=== PATIENT | female | born 1955 | race Caucasian/White ===

== ENCOUNTER 2023-07-31 10:02 | Outpatient (RCR) | payer MEDICARE, OTHER, SELFPAY | END 2023-07-31 23:59 | disposition home or self-care (01) | LOC: RPT 10:02 | PROVIDERS: ATTENDING PHYSICIAN Internal Medicine | DX: M50.00 Cervical disc disorder with myelopathy, unspecified cervical region (principal); R26.9 Unspecified abnormalities of gait and mobility; Z73.6 Limitation of activities due to disability | CPT/HCPCS: 97110; 97112; 97163 ==

== ENCOUNTER 2023-09-01 14:07 | Outpatient (RCR) | payer MEDICARE, OTHER, SELFPAY | END 2023-09-01 23:59 | disposition home or self-care (01) | LOC: RPT 14:07 | PROVIDERS: ATTENDING PHYSICIAN Internal Medicine | DX: M50.01 Cervical disc disorder with myelopathy, high cervical region (principal); M50.00 Cervical disc disorder with myelopathy, unspecified cervical region (principal); R26.9 Unspecified abnormalities of gait and mobility | CPT/HCPCS: 97110; 97112; 97530 ==

== ENCOUNTER 2023-09-25 08:33 | Outpatient (RCR) | payer MEDICARE, OTHER, SELFPAY | END 2023-09-25 23:59 | disposition home or self-care (01) | LOC: RPT 08:33 | PROVIDERS: ATTENDING PHYSICIAN Internal Medicine | DX: M50.00 Cervical disc disorder with myelopathy, unspecified cervical region (principal); R26.9 Unspecified abnormalities of gait and mobility; Z73.6 Limitation of activities due to disability | CPT/HCPCS: 97110; 97112; 97116; 97530 ==

== ENCOUNTER 2023-10-13 13:08 | Outpatient (RCR) | payer MEDICARE, OTHER, SELFPAY | END 2023-10-13 23:59 | disposition home or self-care (01) | LOC: RPT 13:08 | PROVIDERS: ATTENDING PHYSICIAN Internal Medicine | DX: M50.00 Cervical disc disorder with myelopathy, unspecified cervical region (principal); R26.9 Unspecified abnormalities of gait and mobility; Z73.6 Limitation of activities due to disability | CPT/HCPCS: 97110; 97112; 97530 ==

== ENCOUNTER 2024-02-10 12:11 | Emergency (ER) | payer MEDICARE, OTHER, SELFPAY ==
[2024-02-10 12:15] VITALS: BP 116/54
--- NOTE | 2024-02-10 13:05 | ED.GENMED ---
History of Present Illness
General
Chief Complaint: Dizziness
Time Seen by Provider: 02/10/24 13:05
History of Present Illness
History of Present Illness:
HPI: Patient presents after a fall. This occurred 2 days ago. She has chronic dizziness/near syncope. The dizziness is not necessarily a new thing. She has been to neurology in the past and describes history of syringomyelia as well as
choreoathetoid movements. She is not on any treatment for this. Her main concern is ongoing pain to the low back/'tailbone' region.
EXAM:
GENERAL: Well appearing in no distress
HEENT: Moist oral mucosa
CARDIOVASCULAR: No murmurs, normal heart rate, regular rhythm, No chest wall tenderness
PULMONARY: No respiratory distress, breath sounds are clear and equal
ABDOMEN: Soft with no peritoneal signs, no tenderness
BACK: There is no significant tenderness to palpation
NEUROLOGIC: Excellent strength all extremities, no coordination deficits, intermittent choreoathetoid movements noted primarily to the lower extremities
PSYCHIATRIC: Appropriate mental status, normal insight and judgement
EXTREMITIES: Nontender, no edema, moves all extremities equally
SKIN: No rash, no lesions
TIME OF INITIAL ENCOUNTER: 2 PM
NUMBER AND COMPLEXITY OF PROBLEMS ADDRESSED AT THE ENCOUNTER
� Chronic conditions affecting care: Syringomyelia, chronic vertigo, melanoma
� Acute Exacerbation and/or Progression of Chronic Illness: This is an acute problem
� Differential Diagnosis includes: Lumbar spine fracture, pelvic bone fracture, contusion, hematoma
AMOUNT AND/OR COMPLEXITY OF DATA TO BE REVIEWED AND ANALYZED
� I performed an independent evaluation of and my interpretation is:
EKG:
CT: I personally viewed CT imaging. I agree with radiologist interpretation that there is a superior endplate fracture at L1.
X-rays:
Laboratory Studies:
Other:
� Review of other/old records: I reviewed records�the patient has been seeing physical therapy related to cervical myelopathy
� Clinical information was obtained by an independent historian: I spoke to the at bedside
� Prescriptions/Medications Considered but not given:
� Further testing considered but not performed:
RISK OF COMPLICATIONS AND/OR MORBIDITY OR MORTALITY OF PATIENT MANAGEMENT
� Social determinants of health affecting care: Lives at home
� Discussion with other providers:
� Escalation of care including admission/observation vs risk of discharge considered: The patient is found to have a superior endplate fracture at L1. She is neurologically intact. Will give narcotic analgesia. She states this
has helped her when she took an (2019) narcotic recently.
Past History
Past History
ED Past Medical History: Other (Movement disorder, multiple DVTs)
ED Past Surgical History:
Social History
Tobacco: Non-smoker
Alcohol: None
Drug: None
Phy Exam
Physical Exam
Physical Exam:
See HPI
Course
Orders/Labs/Results
Orders:
Orders
02/10/24 12:20
EKG [Electrocardiogram (*1)] Urgent
Reason for Study: Vertigo / Dizzy
EKG- Treatment ONCE
02/10/24 13:28
CT Lumbar Spine W/o Iv Contras Urgent
Comment:
Reason For Exam: fall pain
CT Pelvis W/o Iv Contrast Urgent
Comment:
Reason For Exam: fall pain
02/10/24 15:19
Oxycodone/Acetaminophen [Percocet 5/325] 1 tablet PO NOW STA
Vital Signs
Initial and Last Documented VS:
Initial Vital Signs
Temp Pulse Resp BP Pulse Ox
97.6 F 72 18 116/54 94
02/10/24 12:15 02/10/24 12:15 02/10/24 12:15 02/10/24 12:15 02/10/24 12:15
Last Documented Vital Signs
Temp Pulse Resp BP Pulse Ox
97.6 F 77 18 114/60 96
02/10/24 12:15 02/10/24 14:25 02/10/24 14:25 02/10/24 14:25 02/10/24 14:25
*Critical Care Note
Total Time (30-74mins, 75-104mins- exclusive of procedures): Not Applicable
ED Attending Note
-
Portions of this chart may have been created with voice recognition software.� Occasional wrong word or��sound alike� substitutions may have occurred due to the inherent limitations of voice recognition software.
Discharge Plan
Departure
Patient Disposition: Home (Routine Discharge)
Date of Disposition: 02/10/24
Time of Disposition: 15:20
Patient with high blood pressure during this ER visit?: Yes
Discharge Problem:
Closed lumbar vertebral fracture
Instructions: Vertebral Compression Fracture (DC)
Prescriptions:
New
oxycodone-acetaminophen [Percocet] 5-325 mg tablet
1 tab PO Q6HPRN PRN (Reason: pain) Qty: 14 0RF
No Action
amoxicillin-pot clavulanate 875-125 mg tablet
1 tab PO Q12H Qty: 14 0RF
Referrals:
Clemente Durham, [Active] - Follow up in 2-3 days
Tracy Andersen MD [Family Provider] -
Activity Restrictions/Additional Instructions:
At the top most lumbar vertebrae, there is a 'superior endplate fracture'. Imaging of the pelvis did not show any signs of blood collection or fracture of the pelvis. Take the narcotic pain medication I recommend that you take something like
MiraLAX to prevent constipation. I have also given the contact information for a local customer advisor specialist, Dr. Durham. Return here if worse.
Interventions
Interventions:
*Neglect/Abuse Screening Last Done: 02/10/24 14:24
ED- Fall Risk Assessment Last Done: 02/10/24 14:34
*ED COVID-19 Vaccine History Last Done: 02/10/24 14:24
ED- Neurological Assessment Last Done: 02/10/24 14:34
ED- Cardiac Assessment Last Done: 02/10/24 14:34
ED Swallowing Screen Last Done: 02/10/24 14:34
Discharge Date and Time
Print Language: LITHUANIAN
[2024-02-10 14:25] VITALS: BP 114/60; BMI 26.8
[2024-02-10] MEDS: PERCOCET 5/325 1 TABLET PO (15:25)
[2024-02-10 15:26] VITALS: BP 112/68
== END 2024-02-10 15:41 | disposition home or self-care (01) ==
LOC: EMR 12:11
PROVIDERS: EMERGENCY PHYSICIAN Emergency Medicine; FAMILY PHYSICIAN Internal Medicine
DX: S32.019A Unspecified fracture of first lumbar vertebra, initial encounter for closed fracture (principal); R42 Dizziness and giddiness; W19.XXXA Unspecified fall, initial encounter; R03.0 Elevated blood-pressure reading, without diagnosis of hypertension; Z86.718 Personal history of other venous thrombosis and embolism; G25.89 Other specified extrapyramidal and movement disorders
CPT/HCPCS: 99284; 72131; 72192; 93005

== ENCOUNTER 2024-05-03 09:19 | Outpatient (RCR) | payer MEDICARE, OTHER, SELFPAY | END 2024-05-03 23:59 | disposition home or self-care (01) | LOC: RPT 09:19 | PROVIDERS: ATTENDING PHYSICIAN Physician Assistant Surgical; FAMILY PHYSICIAN Internal Medicine | DX: S32.010D Wedge compression fracture of first lumbar vertebra, subsequent encounter for fracture with routine healing (principal); M62.81 Muscle weakness (generalized); R26.89 Other abnormalities of gait and mobility; Z73.6 Limitation of activities due to disability | CPT/HCPCS: 97110; 97116; 97162 ==

== ENCOUNTER 2024-05-31 09:07 | Outpatient (RCR) | payer MEDICARE, OTHER, SELFPAY | END 2024-05-31 10:12 | disposition home or self-care (01) | LOC: RPT 09:07 | PROVIDERS: ATTENDING PHYSICIAN Physician Assistant Surgical; FAMILY PHYSICIAN Internal Medicine | DX: S32.010D Wedge compression fracture of first lumbar vertebra, subsequent encounter for fracture with routine healing (principal); M62.81 Muscle weakness (generalized); Z73.6 Limitation of activities due to disability | CPT/HCPCS: 97110 ==

== ENCOUNTER 2024-06-18 14:43 | Inpatient (IN) | payer MEDICARE, OTHER, SELFPAY ==
[2024-06-17] VITALS (9 sets, daily range): BP systolic 97–160; BP diastolic 58–97; BMI 22.9; BMI 21.9; BMI 21.6
--- NOTE | 2024-06-17 02:43 | ED.GENMED ---
History of Present Illness
General
Chief Complaint: Chest Problem
Source: patient, spouse and previous radiology exam (CT of the chest abdomen pelvis as well as CTA of the chest performed at [place] yesterday.)
Exam Limitations: none
Time Seen by Provider: 06/17/24 01:53
Nursing documentation reviewed up to this point in time: agreed with
History of Present Illness
History of Present Illness:
This is a 69-year-old woman who resides at home with her . She has history of chorea, chronic ambulatory dysfunction, history of metastatic melanoma initially diagnosed right shoulder 2017. Underwent excision of melanoma as well as 12-month
course of Aptiva and had been cancer free until discovering of multiple lung mets August 2023. Since then she has been maintained on Opdualag monthly injections last of which was May 2023.
She undergoes surveillance CAT scans every 3 months last of which was yesterday at [place]. Initial CT chest abdomen pelvis yesterday showing several bilateral pulmonary nodules, bony rib metastatic disease but also note of concern for right
lower lobe PE. Patient was notified and she returned yesterday evening and underwent CTA of the chest which demonstrates a nonocclusive subsegmental right lower lobe PE and concern for mild right heart strain with RV to LV ratio of 1.0.
Patient was notified of these findings and recommended to come to the ED for further evaluation.
She does note an episode of acute right-sided chest pain while shopping with her that occurred 1 month ago. Since then she has had no recurrent chest pain, she denies cough nor shortness of breath nor chest pain. She does admit to perhaps
mild dyspnea on exertion and overall has very limited exertion due to chronic balance issues, chronic choria.
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 She reports no missed doses.
She denies leg pain or swelling.
She has not had a fever nor chills.
Past History
Past History
ED Past Medical History: Cancer (Melanoma metastatic to lungs and ribs), Other (Chronic chorea; history of DVTs-chronically maintained on Xarelto; L1 compression fracture) and Other (Movement disorder, multiple DVTs)
ED Past Surgical History:
Social History
Tobacco: Non-smoker
Alcohol: None
Drug: None
Personal:
Living: with family
Employment: Retired
Family History
Family History: Other (Noncontributory)
Phy Exam
Physical Exam
Physical Exam:
GENERAL: 69-year-old woman appears her stated age, awake and alert, pleasant, quite chatty and overall appears in no acute distress. is accompanying.
EYE: anicteric
NECK: Supple, nontender, no meningismus, no significant adenopathy. No JVD.
ENT: posterior pharynx is clear, oral mucosa is moist. Lips are dry. No rhinorrhea.
CARDIAC: Regular rate and rhythm. no murmur.
LUNGS: Clear breath sounds bilaterally, no acute respiratory distress, no wheezes/rales/rhonchi
ABDOMEN: Soft, nondistended, without focal tenderness, normoactive BS.
NEUROLOGICAL: Alert and oriented x3, no focal neuro deficits. Mild persistent choreiform movements of extremities
SKIN: Warm and dry, normal color, skin intact. No rash.
MUSCULOSKELETAL: No C/C/E. peripheral pulses are full and equal b/l. No palpable tenderness.
PSYCH: Normal and appropriate interaction.
Course
Orders/Labs/Results
Orders:
Orders
06/17/24 01:55
Electrocardiogram (*1) Urgent
Reason for Study: Other
Other Reason for Exam: incidental RLL PE on CT chest
EKG- Treatment ONCE
06/17/24 02:49
Complete Blood Count/With Diff Urgent
Comprehensive Metabolic Panel Urgent
NT-proBNP Urgent
PTT Urgent
Troponin I Urgent
Abnormal Lab Results
06/17/24
02:49
RBC 3.67 L 10^6/uL
(4.20-5.40)
Hgb 11.6 L g/dL
(12.0-16.0)
Hct 33.9 L %
(37.0-47.0)
MCH 31.6 H pg
(27.0-31.0)
Monocytes % 9.8 H %
(1.7-9.3)
06/17/24 02:49
Vital Signs
Initial and Last Documented VS:
Initial Vital Signs
Temp Pulse Resp BP Pulse Ox
98.6 F 85 20 120/63 100
06/17/24 01:39 06/17/24 01:39 06/17/24 01:39 06/17/24 01:39 06/17/24 01:39
Last Documented Vital Signs
Temp Pulse Resp BP Pulse Ox
98.1 F 93 27 132/73 100
06/17/24 02:01 06/17/24 02:48 06/17/24 02:48 06/17/24 02:48 06/17/24 02:48
MDM/Problems Addressed
Differential Diagnosis Includes:
Patient presents with outpatient CT chest abdomen pelvis showing nonocclusive subsegmental right lower lobe PE with concern for right heart strain.
Overall patient appears comfortable, has been fairly asymptomatic and remains hemodynamically stable.
Significant concern however that patient has failed anticoagulation with Xarelto.
As she overall is stable, fairly asymptomatic, at this point no indication for urgent thrombectomy especially as PE found to be nonocclusive.
She will however require Lovenox and acute hospitalization for further evaluation and monitoring.
Chronic conditions affecting care: Cancer and Other (Prior history of DVTs-chronically maintained on Xarelto)
*Pulse Oximetry
Patient hypoxic: no
*EKG
Interpreted by ED Provider?: Yes
Interpretation: normal
Comparison EKG: no changes (Unchanged from previous February 2024)
Rate: normal
Rhythm: sinus
[place]: normal axis
Interval: normal interval
QRS Pattern: normal QRS
Ischemia: no ischemia
*Technical Services Coordinator Interpretation
Rate: normal
Interpretation: normal
Rhythm: sinus
*Critical Care Note
Total Time (30-74mins, 75-104mins- exclusive of procedures): Not Applicable
ED Attending Note
-
Portions of this chart may have been created with voice recognition software.� Occasional wrong word or��sound alike� substitutions may have occurred due to the inherent limitations of voice recognition software.
Discharge Plan
Departure
Patient Disposition: Admit
Date of Disposition: 06/17/24
Time of Disposition: 03:07
Admit to: Telemetry
Admit to doctor: Manjula
Presentation/result/management discussed w/ accepting MD/DO: Hospitalist
Condition: Fair
Discharge Problem:
Acute pulmonary embolism
Prescriptions:
No Action
amoxicillin-pot clavulanate 875-125 mg tablet
1 tab PO Q12H Qty: 14 0RF
oxycodone-acetaminophen [Percocet] 5-325 mg tablet
1 tab PO Q6HPRN PRN (Reason: pain) Qty: 14 0RF
Interventions
Interventions:
*Risk Screen - Suicide Last Done: 06/17/24 01:39
*General Assessment Last Done: 06/17/24 02:16
*Neglect/Abuse Screening Last Done: 06/17/24 01:39
ED- Fall Risk Assessment Last Done: 06/17/24 02:16
*ED COVID-19 Vaccine History Last Done: 06/17/24 01:39
ED- Cardiac Assessment Last Done: 06/17/24 02:16
ED- Pulmonary Assessment Last Done: 06/17/24 02:16
Discharge Date and Time
Print Language: SAMMARINESE
[2024-06-17 03:03] LABS: % Basophils 1.4 % (0-2); % Eosinophils 3.3 % (0-6); % Immature Granulocytes 0.4 % (0-0.5); % Lymphocytes 29.3 % (20.5-51.1); % Monocytes 9.8 % (1.7-9.3); % Neutrophils 55.8 % (42.2-75.2); Absolute Basophils 0.1 10^3/uL (0-0.2); Absolute Eosinophils 0.2 10^3/uL (0-0.7); Absolute Lymphocytes 1.4 10^3/uL (1.2-3.4); Absolute Monocytes 0.5 10^3/uL (0.1-0.6); Absolute Neutrophils 2.7 10^3/uL (1.4-6.5); Hematocrit 33.9 % (37.0-47.0); Hemoglobin 11.6 g/dL (12.0-16.0); Mean Corp Hgb Conc. 34.2 g/dL (33.0-37.0); Mean Corpuscular Hgb 31.6 pg (27.0-31.0); Mean Corpuscular Volume 92.4 fL (81.0-99.0); Mean Platelet Volume 10.1 fL (7.4-10.4); Nucleated Red Blood Cells % 0 %; Platelet Count 212 10^3/uL (130-400); Red Blood Cell Count 3.67 10^6/uL (4.20-5.40); Red Cell Dist. Width 12.4 % (11.5-14.5); White Blood Cell Count 4.9 10^3/uL (4.8-10.8)
[2024-06-17 03:16] LABS: APTT 26.6 Sec (23.4-35.0)
[2024-06-17 03:26] LABS: ALT (SGPT) 16 U/L (0-35); AST (SGOT) 29 U/L (14-36); Albumin 4.3 g/dl (3.5-5.0); Alkaline Phosphatase 118 U/L (38-126); Blood Urea Nitrogen 19 mg/dl (7-17); Calcium 9.7 mg/dl (8.4-10.2); Carbon Dioxide 28 mmol/L (22-30); Chloride 104 mmol/L (98-107); Estimated Creatinine Clearance 50 ml/min; Glucose 97 mg/dl (70-99); Sodium 143 mmol/L (135-145); Total Bilirubin 0.4 mg/dl (0.2-1.3); Total Protein 7.2 g/dl (6.3-8.2); eGFR > 60.00
[2024-06-17 03:34] LABS: NT-proBNP 522 pg/ml; Troponin I < 0.012 ng/ml
--- NOTE | 2024-06-17 03:34 | HPS.HSE ---
Family Physician
-
Family Physician:
Chief Complaint
-
Incidentally found PE diagnosed on follow-up assessment at outside clinic
History of Present Illness
This is a 69-year-old female with past medical history of melanoma status post prior resection and lymph node dissection who has recurrence of the disease and has been on chemotherapy since August presenting to the emergency department with a
nonocclusive segmental right lower lobe pulmonary emboli.
Patient has a history of chronic choreiform movement abnormalities with severe imbalance, prior recurrent DVTs status post anticoagulation who has been on Xarelto for many years, melanoma diagnosed in 2019 with right shoulder skin findings status
post resection and lymph node dissection and neoadjuvant chemotherapy for about 1 year with no evidence of recurrence for several years until 1999 on 27 August. She had a follow-up CT at that time which showed enhancing lesion in the lungs with a
left paravertebral soft tissue lesion with invasion of the left posterior medial ninth rib for which she had biopsy demonstrating recurrence of the melanoma. Patient has been on chemo with Opdivo.
She has otherwise been asymptomatic denying any chest pain shortness of breath dyspnea on exertion.
Patient is mobility challenged due to balance difficulties from chronic choreiform movement disorder. She had a routine CT scan for follow-up today pending next chemotherapy 1 week from now. Last session was May 26. The CT scan did show
interval increase in size of the subpleural left paravertebral soft tissue lesion with invasion of the left posterior medial ninth rib and an additional ill-defined left lower lobe subpleural opacity and multiple bilateral nodules including the part
solid right upper lobe lesion which are overall unchanged. There is a interval increase in size of expansile posterior right eighth repeat lesion. There was an interval finding of a possible pulmonary embolus on the CT scan. She then had a
confirmatory CT angio at [place] which showed a nonocclusive subsegmental right lower lobe pulmonary emboli. There was also mild heart strain with RV/LV ratio of 1.0.
No history of brain mets. She follows up at [place]. Reports compliance with medications including taking Xarelto daily
In the ED here the patient was afebrile hemodynamically stable in no acute distress. Troponin was negative. BNP 500. ECG shows no acute ischemic changes. CBC was function from prior and within normal limits. Chemistry shows no acute abnormalities.
Medical History
Past Medical History
Past Medical History: Reports Cancer (Recurrent melanoma with metastatic disease on chemo (Aptiva)) and Other (Chronic movement disorder)
Additional Past Medical History:
DVTs
Past Surgical History: Reports (X 3)
Social History
Tobacco: Non-smoker
Alcohol: None
Drug: None
Personal:
Living: With Family
Family History
Family History: Not pertinent
Allergies / Home Medications
Allergies reflects when Allergies were last updated in [facility].
Home Medications with original date entered in [facility]
Allergy/Medication List:
Allergies
Allergy/AdvReac Type Severity Reaction Status Date / Time
No Known Allergies Allergy Unverified 06/17/24 01:39
Home Medications
Xarelto 20 MG 1 tablet with food Orally Once a day Active
traZODone HCl 50 MG 1 tablet at bedtime as needed Orally Once a day Active
Atenolol 50 MG 1 tablet Orally Once a day Active
Review of Systems
-
History Source: Patient
Constitutional: Reports No Symptoms
EENT: Reports No Symptoms
Respiratory: Reports No Symptoms
Cardiac: Reports No Symptoms
Abdomen/GI: Reports No Symptoms
: Reports No Symptoms
Musculoskeletal: Reports No Symptoms
Skin: Reports No Symptoms
Neurological: Reports No Symptoms
Endocrine: Reports No Symptoms
Hematologic/Lymphatic: Reports No Symptoms
Psych: Reports No Symptoms
Physical Exam
Vital Signs
Vital Signs
Temp Pulse Resp BP Pulse Ox
98.1 F 93 27 132/73 100
06/17/24 02:01 06/17/24 02:48 06/17/24 02:48 06/17/24 02:48 06/17/24 02:48
Physical Exam
General: Well Developed, Well Nourished and No Apparent Distress
HEENT: NormoCephalic, Anicteric, Moist mucous membranes and Atraumatic
Respiratory: Clear
Cardiac: S1/S2 and Regular Rhythm
Breast: Deferred by me
GI: Soft, Non Tender, Non Distended and Normal Bowel Sounds
Rectal: Deferred by Provider
Genito-urinary: Deferred by me
Musculoskeletal: No Clubbing, No Cyanosis and No Edema
Skin: Warm
Neuro: AO x 3
Hematologic/Lymphatic: No Lymphadenopathy
Psych: Calm
Laboratory Results
-
06/17/24 02:49
06/17/24 02:49
Laboratory Results
APTT 26.6 Sec (23.4-35.0) 06/17/24 02:49
Total Bilirubin 0.4 mg/dl (0.2-1.3) 06/17/24 02:49
AST 29 U/L (14-36) 06/17/24 02:49
ALT 16 U/L (0-35) 06/17/24 02:49
Alkaline Phosphatase 118 U/L (38-126) 06/17/24 02:49
Impression/Plan
-
IMPRESSION:
69 y.o with chronic movement disorder, Melonama recurrent with metastatic disease to lungs on APTIVA, h/o prior DVTs on Xarelto for many years and comliant presents with incidental finding of R subsegmental PE on follow up CT scan confirmed with CT
angio and showing a mild RV strain. Patient asymptomatic. No chest pain, ONEIL, SOB, hypoxia. Normal ECG. Normal trop and BNP. Do not suspect a hemodynamic significance to the imaging RV strain.
PLAN:
1. PE - On rivaroxaban. Failure of DOACs. HD stable.
- admit to telemetry
- start treatment enoxaparin 1mg/Kg q 12
- LE u/s pending, echo in am
- hematology consultation
2. Movement d/o - Chronic choreiform movements and inbalance, no acute changes. No brain mets
- fall risk assessment, does not have frequent falls.
- continue atenolol 50, trazodone 50 hs and venlafaxine XR 150 daily
Code Status - Full Code
[2024-06-17] MEDS: LOVENOX 60 MG SC (04:59)
--- NOTE | 2024-06-17 05:30 | PTCARENOTE ---
Pt admitted to 2125 from ED. AAOx3, ambulated to bed with standby assist and RW. Placed on tele, NSR. VSS. Denies complaints of pain or SOB. Call green within reach.
[2024-06-17 06:25] LABS: Hematocrit 33.1 % (37.0-47.0); Mean Corp Hgb Conc. 33.2 g/dL (33.0-37.0); Mean Corpuscular Hgb 31.2 pg (27.0-31.0); Mean Corpuscular Volume 93.8 fL (81.0-99.0); Mean Platelet Volume 10.4 fL (7.4-10.4); Platelet Count 210 10^3/uL (130-400); Red Blood Cell Count 3.53 10^6/uL (4.20-5.40); Red Cell Dist. Width 12.3 % (11.5-14.5); White Blood Cell Count 4.8 10^3/uL (4.8-10.8)
[2024-06-17 06:35] LABS: APTT 34.9 Sec (23.4-35.0); INR 1.13
--- NOTE | 2024-06-17 08:17 | CON.ONC ---
Documented by User: JAQUI Santamaria 06/17/24 09:27
Impression
Impression
recurrent metastatic melanoma on immunotherapy
chronic movement disorder
reported pulmonary emboli though I do not have imaging or report to confirm this finding, LE dopper negative
Plan
Plan
I called Dr. Alves's office and discussed case with the ASHLEY. The ASHLEY reports that on CTA done at [facility] radiology a non-occlusive right subsegmental and right lower lobe pulmonary emboli with evidence of RV strain was reported by the radiologist
Agree with enoxaparin 1mg/kg bid since pulmonary emboli occurred while on rivaroxaban. I would discharge pt on therapeutic enoxaparin for at least 3 months, then defer to her [facility] team to determine course of anticoagulation based on
risk/benefit with malignancy. Could consider transition to warfarin, especially if APLS is positive
check Echo
check APLS panel
check baseline ddimer
Recurrent, metastatic melanoma management per Dr. Alves, has follow up to review restaging and his office has referred to the hematology service at [facility] for continued management of recurrent VTE
Further recommendations upon review by Dr. Lu
Patient History
History of Present Illness
69yo F presented to ER this morning after being told that her outpatient restaging imaging showed an incidental pulmonary emboli. She is on rivaroxaban for history of VTE. I do not have reports or imaging to review to confirm that pulmonary
emboli is present or chronicity. Her Lower extremity Doppler is negative for DVT. She reports 3 prior VTE events for which she is on DOAC. Denies fever, chills, cough, sob, ochoa, chest pain, palpitations, n/v/d/c or abdominal pain.
She was initially diagnosed with melanoma IIIC that was excised and treated with adjuvant therapy in 2018. Unfortunately, she has biopsy proven recurrent metastatic melanoma in the lung September 2023. She has been on Opdualag is�a combination of
nivolumab and relatlimab for recurrent, metastatic melanoma since October 2023. She is managed at [facility]. She denies any immune mediated toxicities. Her last restaging in 2023 was unclear if there was progression of disease on her
current therapy. She had restaging scans done this month, however, I do not have these reports or images to review.
Afebrile, no hypoxia, or hypotension
Past-Medical/Surgical History
PMH recurrent metastatic melanoma, chronic movement disorders, VTE, diverticulitis with colon perforation, depression, HTH, neuropathy
PSH melanoma resection, lung biopsy, c section
Social lives with , . Never smoker, denies ETOH or recreational drugs. Retired
Family paternal uncle melanoma, brother leukemia
Patient Medication
�Medication �Instructions �Recorded �Confirmed �Last Taken �Type
amoxicillin 875 mg-potassium 1 tab PO Q12H #14 tabs 09/29/22 Unknown Rx
clavulanate 125 mg tablet
oxycodone-acetaminophen 5 mg-325 1 tab PO Q6HPRN PRN pain #14 tabs 02/10/24 Unknown Rx
mg tablet (Percocet)
Active Medications
Generic Name Dose Route Start Last Admin
Trade Name Freq PRN Reason Stop Dose Admin
Acetaminophen 650 mg 06/17/24 05:28
Acetaminophen 325 Mg Tablet PO 07/15/24 05:27
Q4HPRN PRN
mild pain/temp > 100.4 F
Atenolol 50 mg 06/17/24 08:00
Atenolol 50 Mg Tablet PO 07/15/24 07:59
DAILY VIANCA
Enoxaparin Sodium 60 mg 06/17/24 16:00
Enoxaparin Sodium 60 Mg/0.6 Ml Syringe SC 07/15/24 15:59
Q12H VIANCA
Trazodone HCl 50 mg 06/17/24 22:00
Trazodone 50 Mg Tablet PO 07/15/24 21:59
HS VIANCA
Venlafaxine HCl 150 mg 06/17/24 08:00
Venlafaxine 150 Mg Extended Release Capsule PO 07/15/24 07:59
DAILY VIANCA
Review of Systems
-
ROS notable for HPI, otherwise negative
Physical Exam
-
General: No Apparent Distress
HEENT: Moist Mucous Membranes; Negative Jaundice
Cardiology: Normal Sinus Rhythm
Pulmonary: Clear
GI: Soft
Extremities: Pulses Present; Negative Edema
Skin: Warm
Psych: Calm
Labs
Lab Results
WBC 4.8 10^3/uL (4.8-10.8) 06/17/24 05:40
RBC 3.53 10^6/uL (4.20-5.40) L 06/17/24 05:40
Hgb 11.0 g/dL (12.0-16.0) L 06/17/24 05:40
Hct 33.1 % (37.0-47.0) L 06/17/24 05:40
MCV 93.8 fL (81.0-99.0) 06/17/24 05:40
MCH 31.2 pg (27.0-31.0) H 06/17/24 05:40
MCHC 33.2 g/dL (33.0-37.0) 06/17/24 05:40
RDW 12.3 % (11.5-14.5) 06/17/24 05:40
Plt Count 210 10^3/uL (130-400) 06/17/24 05:40
MPV 10.4 fL (7.4-10.4) 06/17/24 05:40
Abs Immat Gran (auto) 0.0 10^3/uL (0-0.05) 06/17/24 02:49
Absolute Neuts (auto) 2.7 10^3/uL (1.4-6.5) 06/17/24 02:49
Absolute Lymphs (auto) 1.4 10^3/uL (1.2-3.4) 06/17/24 02:49
Absolute Monos (auto) 0.5 10^3/uL (0.1-0.6) 06/17/24 02:49
Absolute Eos (auto) 0.2 10^3/uL (0-0.7) 06/17/24 02:49
Absolute Basos (auto) 0.1 10^3/uL (0-0.2) 06/17/24 02:49
Immature Gran % 0.4 % (0-0.5) 06/17/24 02:49
Neutrophils % 55.8 % (42.2-75.2) 06/17/24 02:49
Lymphocytes % 29.3 % (20.5-51.1) 06/17/24 02:49
Monocytes % 9.8 % (1.7-9.3) H 06/17/24 02:49
Eosinophils % 3.3 % (0-6) 06/17/24 02:49
Basophils % 1.4 % (0-2) 06/17/24 02:49
Creatinine 0.9 mg/dL (0.6-1.0) 06/17/24 02:49
Vital Signs
Vital Signs
Temp Pulse Resp BP Pulse Ox
98.3 F 80 16 97/60 98
06/17/24 05:30 06/17/24 05:30 06/17/24 05:30 06/17/24 05:30 06/17/24 05:30

Documented by User: Salvatore Lu DO 06/17/24 11:12
Impression
Impression
Recurrent metastatic melanoma on immunotherapy
Apparent new onset pulmonary embolus on DOAC
Chronic movement disorder
Demyelinating TUBE AND ROD STRAIGHTENER process
Plan
Plan
CTA done at [facility] radiology a non-occlusive right subsegmental and right lower lobe pulmonary emboli with evidence of RV strain was reported by the radiologist
Agree with enoxaparin 1mg/kg bid since pulmonary emboli occurred while on rivaroxaban.
I would discharge pt on therapeutic enoxaparin for at least 3 months, then defer to her [facility] team to determine course of anticoagulation based on risk/benefit with malignancy.
Could consider transition to warfarin, especially if APLS is positive although patient would prefer to stay on Lovenox at this juncture having previously had difficulty with warfarin
Check Echo
Check APLS panel
Check baseline ddimer
Would perform MRI of the brain as she is due for restaging as Opdualag does not cross the blood-brain barrier well and Lovenox may exacerbate bleeding of metastatic lesions
Recurrent, metastatic melanoma management per Dr. Alves, has follow up to review restaging and his office has referred to the hematology service at [facility] for continued management of recurrent VTE
Patient History
History of Present Illness
69yo F presented to ER at the recommendation of her [facility] physician managing metastatic melanoma following a CT scan and subsequent CTA which revealed evidence of an apparent new pulmonary embolus. Patient has been on Opdualag with apparent
response. She is on rivaroxaban for history of VTE. Her Lower extremity Doppler is negative for DVT. She reports 3 prior VTE events. Denies fever, chills, cough, sob, ochoa, chest pain, palpitations, n/v/d/c or abdominal pain.
She was initially diagnosed with melanoma IIIC that was excised and treated with adjuvant therapy in 2017. Unfortunately, she has biopsy proven recurrent metastatic melanoma in the lung September 2023. She has been on Opdualag metastatic melanoma
since October 2023. She denies any immune mediated toxicities, although she has a chronic demyelinating TUBE AND ROD STRAIGHTENER process and has been unable to walk due to progressive balance disturbance Her last restaging in 2023 was unclear if there was
progression of disease on her current therapy. She reports no recent TUBE AND ROD STRAIGHTENER imaging since September and Opdualag is not known to cross the blood-brain barrier well.
[2024-06-17] MEDS: EFFEXOR XR 150 MG PO (08:38)
[2024-06-17] MEDS: TENORMIN PO (08:42)
[2024-06-17] MEDS: TYLENOL 650 MG PO (08:47)
[2024-06-17 10:27] LABS: D-Dimer 0.34 ug/mlFEU (0.00-0.50)
--- NOTE | 2024-06-17 11:43 | W.PN.UPDATE ---
Update Note
Progress Note Update
Nonbillable note
Patient resting comfortably in bed
Denies of any ongoing chest pain/shortness of breath/palpitation/dizziness
Not on oxygen
Evaluated by oncology in the morning and oncologist discussed with primary oncology at [facility], patient to be transition to Lovenox 1 mg/kilogram twice daily dosing for possible Xarelto failure.
Asked course infrastructure manager to check for co-pay
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
An MRI brain with and without contrast ordered to rule out any brain metastatic disease as well.
Patient likely can be discharged home today if echocardiogram/MRI does not show any problematic finding and Lovenox co-pay is acceptable
--- NOTE | 2024-06-17 16:11 | CM ---
Met with patient at bedside
MRI brain ordered, echo
Observation status - POLLARD FORM explained. Declined to sign. In chart
Dx: PE
PMH: metastatic melanoma on immunotherapy
IA completed.
Dr. Chacon request CM to call for cost of Lovenox 60 mg. 2x/day 90 days
Called [facility] ([phone]) and spoke with Omar
States Lovenox not covered by plan-does not show cost
Lives at home with and 2 daughters (1 with autism) in a 55+ community in a 2 story home 2 steps to enter, 8 steps to second floor
PLOF: ambulates with walker
DME: walker
PCP: Tracy Andersen
Pharmacy: [address]
PLAN: Discharge when stable, CM to follow for needs
[2024-06-17] MEDS: DESYREL 50 MG PO (22:24)
[2024-06-18 03:09] VITALS: BP 115/63
[2024-06-18] MEDS: TYLENOL 650 MG PO (04:38)
[2024-06-18] MEDS: EFFEXOR XR 150 MG PO (07:36)
[2024-06-18] MEDS: TENORMIN PO (07:36)
[2024-06-18 07:44] VITALS: BP 108/70
--- NOTE | 2024-06-18 08:07 | W.PN.ONC2 ---
Documented by User: JAQUI Santamaria 06/18/24 12:28
Today's Communication / Plan
-
I reviewed with patient that her MRI showed 2 nonenhancing foci of increased T1 signal in the left thalamus; larger measures 6 x 7 mm. Foci are consistent with hemorrhage, and likely represent hemorrhagic metastases. No mass effect related to these
foci.
I discussed case with radiation oncology who thinks that pt may benefit from stereotactic radiation at [facility]
I discussed case with primary oncologist ASHLEY at [facility] who plan to discuss clinical trial for POD and referral for radiation oncology
hold anticoagulation - will need to consider IVC filter if anticoagulation can not safely be resumed -with with hx recurrent VTE and metastatic cancer. She is aware of increased risk of recurrent thrombosis.
Neurosurgery consult to assist with management of intracranial bleeding and if steroids are recommended
OP follow up with [facility] for next steps -pt should be given a disc with her imaging at discharge in order to review with her oncologist at [facility]
Impression
Impression
Recurrent metastatic melanoma on immunotherapy
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
Pulmonary embolus on DOAC
Chronic movement disorder
Demyelinating BARRATTE OPERATOR process
Plan
Plan
hold anticoagulation with evidence of hemorrhagic brain mets
Consult neurosurgery re hemorrhagic brain mets
follow up APLS panel
Subjective/Objective
Subjective
no new complaints
denies any new neurological symptoms
Vital Signs:
Vital Signs
Temp Pulse Resp BP Pulse Ox
97.9 F 92 18 108/70 95
06/18/24 07:44 06/18/24 07:44 06/18/24 07:44 06/18/24 07:44 06/18/24 07:44
Lab Results:
Laboratory Data
WBC 4.8 10^3/uL (4.8-10.8) 06/17/24 05:40
Hgb 11.0 g/dL (12.0-16.0) L 06/17/24 05:40
Plt Count 210 10^3/uL (130-400) 06/17/24 05:40
PT 15.0 Sec (11.4-14.6) H 06/17/24 05:40
INR 1.13 06/17/24 05:40
APTT 34.9 Sec (23.4-35.0) 06/17/24 05:40
eGFR > 60.00 06/17/24 02:49
Orders
Orders
Orders From Last 24 Hours
06/17/24 08:58
[id number] Panel [S] Routine
Cardiolipin Ab Panel [S] Routine
Lupus Anticoagulant Panel Refl [S] Routine
06/17/24 09:00
D-Dimer Routine

Documented by User: Teja Lombardi MD 06/18/24 14:56
Plan
Plan
hold anticoagulation with evidence of hemorrhagic brain mets
Consult neurosurgery re hemorrhagic brain mets
follow up APLS panel
Oncology Addendum:
Patient seen and evaluated
-h/o metastatic melanoma w/ new small hemorrhagic brain lesion
-PE - on hold w/ new hemorrhagic brain metastasis
-will defer safety of anticoagulation for PE to neurosurgery
-f/u w/ primary med onc at [facility]
[2024-06-18 11:22] VITALS: BP 141/85
--- NOTE | 2024-06-18 12:38 | CON.NEURO ---
Neuro Assessment/Plan
Assessment
Discovery of abnormal MRI of brain suggesting 1 large and possibly 2 left thalamic hemorrhages
Most likely related to the patient's known malignant melanoma and potentially worsened by routine use of rivaroxaban
Plan
Hold rivaroxaban for total of 48 hours from discovery of hemorrhage then restart
Rehabilitation evaluations
No indication for neurosurgical intervention at this time
Will follow as needed. Please contact us with additional questions or issues
Consultation
Order
Date of Consultation: 06/18/24
Requesting Provider:
Reason for Consult:
Subjective/Objective
Subjective Data
Date of Service: June 18, 2024
69 y/o F reports that she was admitted to the hospital after receiving CT scans for melanoma of her lung at [facility]. Pt was told of a possible pulmonary embolism observed in imaging, so pt returned back to [facility] for additional imaging (CTA). Pt
was then advised to come to this ED for doppler of LE. Subsequently, patient underwent MRI of the brain which demonstrated hemorrhagic change.
Pt was on rivaroxaban previously. Pt was told she had 2 bleeds possibly caused by melanoma on another brain imaging (unspecified).
Pt admits to INFANTE frontal radiating to occipital region. Typically headaches last 1 hour with the use of agvc-mfs-ovdxytj medications and she experiences 2-3 episodes of INFANTE weekly.
Pt had dizziness x few weeks, not currently.
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 Pt has previously received a spinal tap as part of the workup of her choreic movements in addition to evaluation by the [facility].
Objective Data
Vital Signs
Temp Pulse Resp BP Pulse Ox
37.1 C 108 19 141/85 97
06/18/24 11:22 06/18/24 11:22 06/18/24 11:22 06/18/24 11:22 06/18/24 11:22
Lab Results
06/17/24 05:40
06/17/24 02:49
PT 15.0 Sec (11.4-14.6) H 06/17/24 05:40
INR 1.13 06/17/24 05:40
APTT 34.9 Sec (23.4-35.0) 06/17/24 05:40
Sodium 143 mmol/L (135-145) 06/17/24 02:49
Potassium 5.0 mmol/L (3.5-5.1) 06/17/24 02:49
BUN 19 mg/dl (7-17) H 06/17/24 02:49
Glucose 97 mg/dl (70-99) 06/17/24 02:49
Calcium 9.7 mg/dl (8.4-10.2) 06/17/24 02:49
Jvl-W-Wdcpdrobuaz Pept 522 pg/ml 06/17/24 02:49
Patient Allergies
No Known Allergies Allergy (Unverified 06/17/24 01:39)
Review of Systems
-
History Source: Patient
All other systems: Reviewed and negative
EENT: Negative Blurry Vision or Swallowing Difficulty
Respiratory: Negative Trouble Breathing
Cardiac: Negative Chest Pain
Musculoskeletal: Negative Neck Pain
Neuro: Negative Dizzy or Headache
Physical Exam
-
General: No Apparent Distress and Appears Stated Age
Eyes: OU Absent Papilledema, Round OU, [place] Conjunctivae and No Ptosis
HEENT: Anicteric and Moist Mucous Membranes
Neck: Full Range of Motion
Respiratory: No Dyspnea
Cardiac: No JVD
GI: Non-distended
Skin: Unremarkable
Extremities: No Clubbing, No Cyanosis and No Edema
Psych: Negative Intact Judgement/Insight
Extended Neurological Exam
Mood & Affect: Mood Unremarkable and Affect Unremarkable
Attention Span & Concentration: Awake, Alert, Interactive and No Difficulty with 2 Step Request
Memory: Unremarkable
Tremor: Hand Tremor Absent and Head Tremor Absent
Involuntary Movement: Other (Mild near constant choreic movements involving all extremities, lower extremities greater than upper)
Speech: Quality Unremarkable and Pressured (And tangential); Negative Quantity Unremarkable
Cranial Nerve II: Left Eye: Pupillary Reactivity Unremarkable, Pupillary Size Unremarkable and Visual [place]ala Intact
Cranial Nerve II: Right Eye: Pupillary Reactivity Unremarkable, Pupillary Size Unremarkable and Visual [place] Intact
Cranial Nerves III, IV, : Extraocular Movement: Extraocular Movement Full in all Directions
Cranial Nerve VII: Facial Symmetry: Normal Facial Symmetry
Cranial Nerve VIII: Hearing: Unremarkable Hearing to Normal Conversational Volume
Cranial Nerves IX, X: Palate Movement: Palate Elevation Symmetric
Cranial Nerve XI: Shoulder Shrug: Unremarkable
Cranial Nerve XII: Tongue Protusion: Midline
Muscle Strength, Overall: Full Throughout
Muscle Bulk & Tone: Bulk Unremarkable and Tone Unremarkable
Pronator Drift: No Drift in Upper Extremities
Deep Tendon Reflexes: Unremarkable Throughout
Touch Sensation: Unremarkable
Coordination: Weosae-vpjk-baiqdi Testing Unremarkable
Babinski Sign: Absent Bilaterally
Data Reviewed
-
MRI Head: Report Reviewed and Image Reviewed
Labs: Report Reviewed
Reviewed with: Physician and Patient
Old Records: Summarized
Medications
-
Active Medications
Generic Name Dose Route Start Last Admin
Trade Name Freq PRN Reason Stop Dose Admin
Acetaminophen 650 mg 06/17/24 05:28 06/18/24 04:38
Acetaminophen 325 Mg Tablet PO 07/15/24 05:27 650 mg
Q4HPRN PRN Administration
mild pain/temp > 100.4 F
Atenolol 50 mg 06/17/24 08:00 06/18/24 07:36
Atenolol 50 Mg Tablet PO 07/15/24 07:59 Not Given
DAILY VIANCA
Enoxaparin Sodium 60 mg 06/17/24 16:00 06/17/24 16:45
Enoxaparin Sodium 60 Mg/0.6 Ml Syringe SC 07/15/24 15:59 Not Given
Q12H VIANCA
Trazodone HCl 50 mg 06/17/24 22:00 06/17/24 22:24
Trazodone 50 Mg Tablet PO 07/15/24 21:59 50 mg
HS VIANCA Administration
Venlafaxine HCl 150 mg 06/17/24 08:00 06/18/24 07:36
Venlafaxine 150 Mg Extended Release Capsule PO 07/15/24 07:59 150 mg
DAILY VIANCA Administration
Home Medications
�Medication �Instructions �Recorded
oxycodone-acetaminophen 5 mg-325 1 tab PO Q6HPRN PRN pain #14 tabs 02/10/24
mg tablet (Percocet)
atenolol 50 mg tablet 50 mg PO DAILY #30 tabs 06/17/24
enoxaparin 60 mg/0.6 mL 60 mg (0.6 mL) SC BID 30 days #36 06/17/24
subcutaneous syringe (Lovenox) mL
trazodone 50 mg tablet 50 mg PO HS #30 tabs 06/17/24
venlafaxine 150 mg 150 mg PO DAILY #30 caps 06/17/24
capsule,extended release 24 hr
Past History
Past History
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
ED Past Surgical History: and Other (Right shoulder melanoma resection)
Social History
Tobacco: Non-smoker
Alcohol: None
Drug: None
Personal:
Living: with family
Employment: Retired
Family History
Family History: Other (Reviewed and noncontributory)
--- NOTE | 2024-06-18 13:27 | CON.NS ---
Consultation
-
Date/Time Consultation Performed: 06/18/2024; 13:30
Performing Provider: [facility]
Chief Complaint
History of Present Illness
This is a neurosurgical consultation on a 69-year-old female with a history of melanoma, status post prior resection and lymph node dissection, who had recurrence of disease, is on chemotherapy since August who presents with pulmonary emboli. She
has a history of having prior recurrent DVTs, on Xarelto for many years. Patient has a history of chronic choreal for movement disorder. She had a routine CT scan of the head yesterday pending next chemotherapy treatment. This unfortunately
showed interval increase in a left paravertebral soft tissue lesion with interval increase of other lesions as well there was also interval finding of a pulmonary embolus on the CT scan. She was reported to not have any brain mets, and follows up
with [facility] for her oncologic care. She reported that she was compliant with her medications including Xarelto. She had a CT scan of the head as she was due for restaging as her chemotherapy drug/immunotherapy drug did not cross
the blood-brain barrier. She had a MRI of the brain with and without contrast which ultimately demonstrated 2 nonenhancing areas within the left thalamus, consistent with hemorrhage, and potentially representing hemorrhagic metastasis. Ultimately,
plan is to proceed with possible stereotactic radiation for these lesions. It was discussed whether or not patient would need to have anticoagulation held and to consider IVC filter. Neurosurgery was consulted to assist in management of
intracranial bleeding and further management of these presumed hemorrhagic metastasis.
Patient seen and examined. She denies any acute onset of headache. She reports that she does get a history of chronic headaches, which are quite sporadic and intermittent in nature, and which are typically resolved by Tylenol. She denies any new
weakness in the upper extremities or lower extremities. She reports diffuse weakness for which she has been undergoing physical therapy for
Review of Systems
-
A 10 point review of systems was performed which includes constitutional, ENT, cardiovascular, respiratory, GI, , integumentary, neurologic, hematologic, endocrinologic, and was negative, except for stated in HPI.
Medication and Allergies
Home Medications
Home Medications
�Medication �Instructions �Recorded
oxycodone-acetaminophen 5 mg-325 1 tab PO Q6HPRN PRN pain #14 tabs 02/10/24
mg tablet (Percocet)
atenolol 50 mg tablet 50 mg PO DAILY #30 tabs 06/17/24
enoxaparin 60 mg/0.6 mL 60 mg (0.6 mL) SC BID 30 days #36 06/17/24
subcutaneous syringe (Lovenox) mL
trazodone 50 mg tablet 50 mg PO HS #30 tabs 06/17/24
venlafaxine 150 mg 150 mg PO DAILY #30 caps 06/17/24
capsule,extended release 24 hr
Allergies
Allergies
Allergy/AdvReac Type Severity Reaction Status Date / Time
No Known Allergies Allergy Unverified 06/17/24 01:39
Physical Exam
-
Exam:
Awake, alert, oriented x 3.
Cranial nerves II to XII are grossly intact.
Motor: Diffuse choreiform movements noted of both upper extremities. This does distinguish with intentional movement. 5/5 strength bilaterally in upper extremities lower extremities with no evidence of pronator drift.
Gait not tested.
Head is normocephalic atraumatic
Neck is supple
Breathing is nonlabored
Cardiac: Regular rate
Abdomen is soft
Extremities are warm
MRI of the brain with and without contrast performed was reviewed. Images were personally viewed and interpreted by me. No prior imaging is available for comparison. at [facility] there is evidence of blooming on FFT sequences within the
anterior aspect of the left thalamus. There is a T1 hyperintense area within the medial aspect of the left thalamus which is concerning for possible hemorrhage. There is no obvious additional contrast-enhancement that is seen. There is FLAIR
signal hyperintensity noted within bilateral thalami, as well as in the subcortical white matter, as well as surrounding the ventricles. No obvious evidence of hydrocephalus is seen.
Problems
-
Problem Status Onset Code
Acute pulmonary embolism I26.99
Assessment / Plan
-
This is a 69-year-old female with a history of melanoma, metastatic. She presents with pulmonary emboli, and on restaging/surveillance brain MRI, is noted to have 2 areas that appear to be suspicious for possible small hemorrhagic lesions, and left
thalamus.
At present time, risk of progression of pulmonary emboli, and risk of new thrombosis is high given her history of recurrent thrombotic events on therapeutic anticoagulation. She appears to be asymptomatic from these left thalamic lesions, and these
were found essentially incidentally. Given this, okay to proceed with therapeutic anticoagulation, provided that the patient's systolic blood pressures remain well-controlled (systolic blood pressures strictly less than 140 ) on medications.
Patient should proceed with follow-up with her primary oncologic team at [facility], and may require close interval surveillance scans to evaluate whether these hemorrhagic lesions are indeed underlying metastasis, and will need to
proceed with appropriate treatment as deemed necessary for these.
--- NOTE | 2024-06-18 13:43 | W.PN.HOSP.TC ---
Today's Communication/Plan
-
restart lovenox from tomorrow AM
continue other care
Assessment / Plan
Assessment / Plan
MRI brain
2 nonenhancing foci of increased T1 signal in the left thalamus; larger measures 6 x 7 mm. Foci are consistent with hemorrhage, and likely represent hemorrhagic metastases. No mass effect related to these foci.
Moderate cerebral atrophy along with evidence of chronic small vessel ischemia in the cerebral white matter and ezra.
TTE
Normal left ventricular size, wall thickness and systolic function. LV ejection fraction is 55-60% by visual assessment. Normal diastolic function. Normal right ventricular size and function.
Mild aortic regurgitation. Estimated pulmonary artery pressure of 28 mmHg, assuming a right atrial pressure of 3 mmHg. No prior study available for comparison.

1. Subsegmental PE
Question of xarelto failure
-Patient had an outpatient CT chest showing new right-sided subsegmental PE
-Lower extremity venous Doppler negative for any blood clot
-Patient already on Xarelto with history of prior DVTs, promotional demonstrator oncologist discussed with primary oncology and patient decided to be switched to Lovenox 1 Mg/KG twice daily dose
-Patient had an MRI brain to rule out any metastatic disease showing a right thalamic possible hemorrhagic metastasis
-Neurosurgery/neurology approved patient to be resumed back on anticoagulation therapy. Patient will be initiated on anticoagulation tomorrow morning.
2. Recurrent melanoma
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
-Neurology/neurosurgery evaluated, patient recommended to have f/u with [facility] oncologist for further monitoring
-Question of patient primary chemo/immunotherapy playing role in clot formation, requested patient to discuss with primary oncologist on follow
DVT PPX - Lovenox (on hold for 48rhs)
full code
Discussed with oncology/neurology
Anticipated Discharge: Within 24 hours
Subjective/Interval History
-
Date of Service: June 18, 2024
patient denies of having any chest pain/palpitation
no nausea/vomiting
no other issues
Objective Data
-
Vital Signs:
Vital Signs
Temp Pulse Resp BP Pulse Ox
98.8 F 108 19 141/85 97
06/18/24 11:22 06/18/24 11:22 06/18/24 11:22 06/18/24 11:22 06/18/24 11:22
I&O
06/17/24 06/18/24 06/19/24
06:59 06:59 06:59
Intake Total 100 / 100 1200 / 1200
Balance 100 / 100 1200 / 1200
Review of Systems
-
Respiratory: Reports No Symptoms
Cardiac: Reports No Symptoms
Abdomen/GI: Reports No Symptoms
Physical Exam
-
General: No Apparent Distress and Comfortable
HEENT: Negative Oxygen
Respiratory: Clear to Auscultation
Cardiac: Regular Rhythm and S1/S2; Negative Murmur or Rub
GI: Soft, Nontender, Nondistended and Normal Bowel Sounds
Musculoskeletal: No Edema
Neuro: Awake, Alert, Oriented, No Motor Deficits and Nonfocal/Grossly Intact
Psych: Calm
--- NOTE | 2024-06-18 14:21 | CM ---
Patient seen at bedside.
Neuro consult
MRI brain completed
PLAN: home, ?VN
to transport
[2024-06-18 15:41] VITALS: BP 158/73
[2024-06-18 20:36] VITALS: BP 106/68
[2024-06-18] MEDS: DESYREL 50 MG PO (21:32)
[2024-06-18 23:11] VITALS: BP 109/62
[2024-06-19 01:20] LABS: Beta-2-Glycoprotein I Ab. IgG <10 SGU (<=20); Beta-2-Glycoprotein I Ab. IgM <10 SMU (<=20)
[2024-06-19 03:08] VITALS: BP 142/95
[2024-06-19 07:00] VITALS: BP 111/74
[2024-06-19] MEDS: EFFEXOR XR 150 MG PO (07:39)
[2024-06-19] MEDS: TYLENOL 650 MG PO (07:39)
[2024-06-19] MEDS: TENORMIN 50 MG PO (07:42)
[2024-06-19 09:53] LABS: Cardiolipin IgA Antibody <10 APL (<=11); Cardiolipin IgM Antibody <10 MPL (<=12); Cardiolipin Igg Antibody <10 GPL (<=14)
[2024-06-19] MEDS: LOVENOX 60 MG SC (10:47)
[2024-06-19 11:00] VITALS: BP 105/57
--- NOTE | 2024-06-19 12:06 | CM ---
CM following re: d/c planning.
Pt for d/c today.
CM discussed dispo with pt and offered to arrange VN for RN and PT needs.
After discussion, she stated she does not believe she needs it and declined.
CM advised her to contact her PCP if she changes her mind.
Family transport home today.
--- NOTE | 2024-06-19 12:52 | W.PN.HOSP.TC ---
Today's Communication/Plan
-
d/c home
Assessment / Plan
Assessment / Plan
MRI brain
2 nonenhancing foci of increased T1 signal in the left thalamus; larger measures 6 x 7 mm. Foci are consistent with hemorrhage, and likely represent hemorrhagic metastases. No mass effect related to these foci.
Moderate cerebral atrophy along with evidence of chronic small vessel ischemia in the cerebral white matter and ezra.
TTE
Normal left ventricular size, wall thickness and systolic function. LV ejection fraction is 55-60% by visual assessment. Normal diastolic function. Normal right ventricular size and function.
Mild aortic regurgitation. Estimated pulmonary artery pressure of 28 mmHg, assuming a right atrial pressure of 3 mmHg. No prior study available for comparison.

1. Subsegmental PE
Question of xarelto failure
-Patient had an outpatient CT chest showing new right-sided subsegmental PE
-Lower extremity venous Doppler negative for any blood clot
-Patient already on Xarelto with history of prior DVTs, program director cable television oncologist discussed with primary oncology and patient decided to be switched to Lovenox 1 Mg/KG twice daily dose
-Patient had an MRI brain to rule out any metastatic disease showing a right thalamic possible hemorrhagic metastasis
-Neurosurgery/neurology approved patient to be resumed back on anticoagulation therapy. Patient will be initiated on anticoagulation tomorrow morning.
2. Recurrent melanoma
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
-Neurology/neurosurgery evaluated, patient recommended to have f/u with [facility] oncologist for further monitoring
-Question of patient primary chemo/immunotherapy playing role in clot formation, requested patient to discuss with primary oncologist on follow
DVT PPX - Lovenox (on hold for 48rhs)
full code
Discussed with oncology/neurology
Anticipated Discharge: Today
Subjective/Interval History
-
Date of Service: June 19, 2024
no problems overnight
have some neck pain/headache
no other issues
Objective Data
-
Vital Signs:
Vital Signs
Temp Pulse Resp BP Pulse Ox
98.1 F 70 16 105/57 99
06/19/24 11:00 06/19/24 11:00 06/19/24 11:00 06/19/24 11:00 06/19/24 11:00
I&O
06/18/24 06/19/24 06/20/24
06:59 06:59 06:59
Intake Total 1200 / 1200 1020 / 1020
Balance 1200 / 1200 1020 / 1020
Review of Systems
-
Respiratory: Reports No Symptoms
Cardiac: Reports No Symptoms
Abdomen/GI: Reports No Symptoms
Physical Exam
-
General: No Apparent Distress and Comfortable
HEENT: Negative Oxygen
Respiratory: Clear to Auscultation
Cardiac: Regular Rhythm and S1/S2; Negative Murmur or Rub
GI: Soft, Nontender, Nondistended and Normal Bowel Sounds
Musculoskeletal: No Edema
Neuro: Awake, Alert, Oriented, No Motor Deficits and Nonfocal/Grossly Intact
Psych: Calm
--- NOTE | 2024-06-19 17:34 | W.DCSUMMARY ---
Discharge Summary
Discharge Data
Date of Admission: 06/18/24
Date of Discharge: 06/19/24
-
Pending Results: No
Hospital Course
Discharging Physician : Dr Tristin Chacon
Disposition : Home
Primary care physician : Unknown
Principal Discharge diagnosis :
Right lung subsegmental pulmonary embolism
Small hemorrhagic brain metastatic disease
Chronic Discharge diagnosis :
Relapsed melanoma on Opdivo
Depression/anxiety
Chronic pain on narcotic
Essential hypertension
Hospital Course :
Patient is a 69-year-old female with admission past medical history came to ER after was found to having right sided subsegmental PE on outpatient CT scan. Patient have history of metastatic melanoma and on Opdivo therapy by [facility]
oncology. Patient was having some right lower rib cage pain and have known to have bone mets, patient had a CT angio at [facility] which showed a nonocclusive subsegmental right lower lobe pulmonary embolism. Patient was instructed to come to
[place] ER for further management. Patient was already on Xarelto with previous history of DVT and hemat/oncology was involved in care. Patient felt to having failure of Xarelto therapy and thus was transitioned to Lovenox therapy.
Echocardiogram ruled out any RV strain. Patient was vitally stable and not hypoxic. Patient had a follow-up MRI brain with and without contrast which incidentally showed a right thalamus less than 1 cm small hemorrhagic metastasis disease.
Lovenox was held and neurology/neurosurgery to evaluation was requested. Patient was cleared to be resumed back on Lovenox after 48 hours. At this point patient was discharged home with follow-up with primary oncology in office.
Important imaging findings :
None
Procedure findings :
None
Discharge Plan
-
Patient Disposition: Home (Routine Discharge)
Discharge Diagnosis/Procedures: Sub-segmental PE, melanoma
Condition: Fair
Diet: Regular
Activity: As tolerated
Driving Restrictions: As prior to admission
Bathing Restrictions: OK to Shower
Referrals:
Tracy Andersen MD [Family Provider] - in one week
Prescriptions:
New
trazodone 50 mg Tablet
50 mg PO HS Qty: 30 0RF
venlafaxine 150 mg Capsule,Extended Release 24hr
150 mg PO DAILY Qty: 30 0RF
atenolol 50 mg Tablet
50 mg PO DAILY Qty: 30 0RF
enoxaparin [Lovenox] 60 mg/0.6 mL syringe
60 mg SC BID 30 Days Qty: 36 2RF
Continued
oxycodone-acetaminophen [Percocet] 5-325 mg tablet
1 tab PO Q6HPRN PRN (Reason: pain) Qty: 14 0RF
Discontinued
amoxicillin-pot clavulanate 875-125 mg tablet
1 tab PO Q12H Qty: 14 0RF
Discharge Orders:
Discharge Patient (As Directed); Ordered 06/19/24
Ordered By: Tristin Chacon
Discharge Date and Time
Discharge Date/Time: 06/19/24 13:41
Print Language: DANISH
[2024-06-20 15:59] LABS: Anti-Xa Qualitative Interp Present (Not Present); Anticoagulant Med Neutralizati DOAC-Stop (Not Performed); Hexagonal Phospholipid Confirm 4.3 s (<=7.9); Neutralized PTT-LA Ratio 1.22 (<=1.20); Neutralized dRVTT Screen Ratio 1.08 (<=1.20); PTT-LA Ratio 1.32 (<=1.20); Prothrombin Time 16.5 s (12.0-15.5); Thrombin Time 27.9 s (<=19.5); dRVTT 1.1 Mix Ratio Not Performed (<=1.20); dRVTT Confirmation Ratio Not Performed (<=1.20); dRVTT Screen Ratio 1.29 (<=1.20)
== END 2024-06-19 13:41 | disposition home or self-care (01) | DRG 176 ==
LOC: 2 NORTH 14:43
PROVIDERS: Nurse Practitioner Acute Care; ADMITTING PHYSICIAN Internal Medicine; ATTENDING PHYSICIAN Hospitalist; CONSULT PHYSICIAN Internal Medicine Hematology & Oncology; CONSULT PHYSICIAN Psychiatry & Neurology Neurology; EMERGENCY PHYSICIAN Emergency Medicine; FAMILY PHYSICIAN Internal Medicine; OTHER PHYSICIAN Neurological Surgery
DX: I26.93 Single subsegmental thrombotic pulmonary embolism without acute cor pulmonale (principal); C79.31 Secondary malignant neoplasm of brain; C79.51 Secondary malignant neoplasm of bone; G89.29 Other chronic pain; I10 Essential (primary) hypertension; Z85.820 Personal history of malignant melanoma of skin; Z79.01 Long term (current) use of anticoagulants
CPT/HCPCS: 70553; 80053; 83880; 84484; 85025; 85027; 85379; 85520; 85598; 85610; 85613; 85670; 85730; 86146; 86147; 93005; 93306; 93970; 99285; A9575

== ENCOUNTER 2024-11-12 11:10 | Emergency (ER) | payer MEDICARE, OTHER, SELFPAY ==
[2024-11-12 11:12] VITALS: BP 128/68
--- NOTE | 2024-11-12 11:55 | ED.MUSCINJ ---
HPI-Injury
General
Chief Complaint: Fall
Source: patient
Exam Limitations: none
Time Seen by Provider: 11/12/24 11:40
History of Present Illness-Injury
Initial Injury comments:
69-year-old female presents complaining of left arm pain after fall sustained last night. Centered around her elbow. She did not hit her head. No neck pain. No other complaints at this time
Past History
Past History
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
ED Past Surgical History: and Other (Right shoulder melanoma resection)
Social History
Tobacco: Non-smoker
Alcohol: None
Drug: None
Personal:
Living: with family
Employment: Retired
Family History
Family History: Other (Reviewed and noncontributory)
Phy Exam
Physical Exam
Physical Exam:
General: Well-appearing female in no acute respiratory distress
HEENT: Normocephalic atraumatic
Heart: Regular rate and rhythm
Musculoskeletal exam: Left elbow swollen and tender posteriorly. No significant deformity the wrist and shoulder are nontender
Vascular: 2+ radial pulse left wrist
Neurologic: Good sensation left hand
Injury Course
Orders/Labs/Results
Orders:
Orders
11/12/24 11:17
CR Elbow - Left Min 3 Views Urgent
Comment:
Reason For Exam: injury, pain/swelling
CR Forearm - Left 2 View Urgent
Comment:
Reason For Exam: injury, pain/swelling
MDM/Problems Addressed
Differential Diagnosis Includes:
Left elbow pain after mechanical fall yesterday. Consider contusion versus fracture versus dislocation
I personally visualized x-rays of the left forearm and elbow both of which demonstrate minimally distracted olecranon fracture. Patient will be placed in a long-arm splint. Sling will be supplied. Advise she follow-up with orthopedics for further
evaluation
*Critical Care Note
Total Time (30-74mins, 75-104mins- exclusive of procedures): Not Applicable
ED Attending Note
-
Portions of this chart may have been created with voice recognition software.� Occasional wrong word or��sound alike� substitutions may have occurred due to the inherent limitations of voice recognition software.
Discharge Plan
Departure
Patient Disposition: Home (Routine Discharge)
Date of Disposition: 11/12/24
Time of Disposition: 11:58
Patient with high blood pressure during this ER visit?: No
Discharge Problem:
Closed olecranon process fracture
Instructions: Muscle, joint, and bone pain - Discharge instructions
Prescriptions:
No Action
oxycodone-acetaminophen [Percocet] 5-325 mg tablet
1 tab PO Q6HPRN PRN (Reason: pain) Qty: 14 0RF
trazodone 50 mg Tablet
50 mg PO HS Qty: 30 0RF
venlafaxine 150 mg Capsule,Extended Release 24hr
150 mg PO DAILY Qty: 30 0RF
atenolol 50 mg Tablet
50 mg PO DAILY Qty: 30 0RF
enoxaparin [Lovenox] 60 mg/0.6 mL syringe
60 mg SC BID 30 Days Qty: 36 2RF
Referrals:
Tatyana Morejon I., DO [Active] -
Activity Restrictions/Additional Instructions:
Keep splint on and dry. Use sling for support. Do not bear weight on the left arm. Follow-up with orthopedics for further evaluation
Interventions
Interventions:
*Risk Screen - Suicide Last Done: 11/12/24 11:12
*General Assessment Last Done: 11/12/24 11:12
*Neglect/Abuse Screening Last Done: 11/12/24 11:16
*ED COVID-19 Vaccine History Last Done: 11/12/24 11:12
Discharge Date and Time
Print Language: SALVADOREAN
== END 2024-11-12 13:00 | disposition home or self-care (01) ==
LOC: EMR 11:10
PROVIDERS: EMERGENCY PHYSICIAN Emergency Medicine; FAMILY PHYSICIAN Internal Medicine
DX: S52.022A Displaced fracture of olecranon process without intraarticular extension of left ulna, initial encounter for closed fracture (principal); W18.30XA Fall on same level, unspecified, initial encounter; Z85.820 Personal history of malignant melanoma of skin; Z86.718 Personal history of other venous thrombosis and embolism
CPT/HCPCS: 99283; 29125; 73080; 73090

== ENCOUNTER 2024-11-23 06:16 | Day surgery (SDC) | payer MEDICARE, OTHER, SELFPAY ==
[2024-11-23] VITALS (10 sets, daily range): BP systolic 82–123; BP diastolic 46–92; BMI 19.5
[2024-11-23] MEDS: NORMOSOL-R/PLASMALYTE-A 1000 IV (11:40)
--- NOTE | 2024-11-23 11:44 | PTCARENOTE ---
Large L arm ajay dressing. Dressing left on. Wipe ordered to the L arm and ajay not removed. Dr. Portillo notified. Dr. Portillo also notified that patient stopped her Lovenox on 11/22/24 0630.
[2024-11-23] MEDS: TYLENOL 1000 MG PO (11:48)
== END 2024-11-23 17:07 | disposition home or self-care (01) ==
LOC: SDS 06:16
PROVIDERS: ATTENDING PHYSICIAN Orthopaedic Surgery Hand Surgery
DX: S52.022A Displaced fracture of olecranon process without intraarticular extension of left ulna, initial encounter for closed fracture (principal); X58.XXXA Exposure to other specified factors, initial encounter
CPT/HCPCS: 24685; C1713